=== PATIENT | male | born 1985 | race Two or more races ===

== ENCOUNTER 2025-10-12 16:56 | Emergency (ER) | payer MEDICAID, SELFPAY ==
[2025-10-12 18:30] VITALS: BP 137/79; PULSE 69; RESP 18; TEMP 36.9; O2SAT 98; BMI 25.4
--- NOTE | 2025-10-12 18:46 | PD.EDWOUND ---
ED Wound/Laceration-RME/HPI General Chief Complaint: Wound/Laceration Stated Complaint: Laceration to left side of head Time Seen by Provider: 10/12/25 18:43 Arrival date/time: 10/12/25 16:56 40M with no significant PMH presents to ED with L scalp lac after a ladder fell on his head. Patient denies LOC, AMS, seizures, N/V, and vision changes. Patient is UTD on tetanus. Limitations: no limitations Related Data Allergies Allergy/AdvReac Type Severity Reaction Status Date / Time No Known Drug Allergies Allergy Verified 10/12/25 17:01 Review of Systems Review of Systems Systems Reviewed: All systems reviewed, normal except as documented Integumentary/Breasts Skin/Breast: Reports as per HPI and Reports skin pain Past Medical History Social History SMOKING STATUS: Never smoker ED Exam General Limitations: Present no limitations General appearance: Present alert and in no apparent distress Expanded Head Exam Head exam physical: Present laceration (2 cm L scalp) Neck Neck exam: Present normal inspection, full ROM and trachea midline Chest Chest inspection: Present normal inspection and symmetric chest wall rise Neurological Exam Neurological exam: Present alert and oriented X3 Psychiatric Psychiatric exam: Present normal affect and normal mood Skin Skin exam: Present warm, dry, intact and normal color Course Quality Measures none Orders Category Date Time Status Stapler to Beside ONCE Care 10/12/25 18:45 Active Wound Care NOW Care 10/12/25 18:45 Active Naproxen [Naprosyn] Med 10/12/25 18:45 Discontinued 500 mg PO X1 ONE Vital Signs Vital signs: Vital Signs Temperature 98.4 F 10/12/25 18:30 Pulse Rate 69 10/12/25 18:30 Respiratory Rate 18 10/12/25 18:30 Blood Pressure 137/79 H 10/12/25 18:30 Pulse Oximetry (%) 98 10/12/25 18:30 Oxygen Delivery Method Room Air 10/12/25 18:30 O2 at 98% on RA and WNLs Wound / Laceration MDM Narrative MDM Narrative:: 40M with no significant PMH presents to ED with L scalp lac after a ladder fell on his head. Patient denies LOC, AMS, seizures, N/V, and vision changes. Patient is UTD on tetanus. Physical exam reveals 2 cm lac on L scalp. No other gross head trauma. Speech and gait normal. Patient is afebrile, calm, and alert. Wound cleaned and closed with 4 dejon. Given school guidance counselor to have them removed in about 10 days. Patient data External records reviewed:: None Clinical information provided by:: patient Social determinants that could affect healthcare access:: none Patient has the following chronic illnesses:: none How is presenting disease/condition affected by chronic disease/condition?: no chronic disease Evaluation data The following diagnostics were reviewed and interpreted by me:: other (specify) (none) Lab and/or radiology exams considered but not ordered:: not ordered Interpretation Summary: n/a Medications / Prescriptions Medications or Prescriptions considered but not ordered:: ordered Medication administrations:: Medication Administration History Discontinued Medications Naproxen (Naproxen 250 Mg Tablet) 500 mg PO X1 ONE Stop: 10/12/25 18:46 above Consultations Consultation(s) initiated? (list below): No Diagnosis Wound Differential Diagnosis: laceration, abrasion, avulsion of skin and other (CHI) Most likely diagnosis given after review of the tests above:: CHI and laceration Admission Indicated Admission indicated?: not indicated Admission Request Was there a request for admission?: No Disposition Plan Disposition Plan: Discharge Discharge Attestation Discharge Attestation: The patient and all family members were given an opportunity to ask questions and understood the discharge instructions. Discharge instructions specifically effects, indications for sooner follow up or return to the emergency department, and the expected course of current diagnosis. Patient condition: Stable Discharge Plan Plan Patient Disposition: HOME (Self Care) Discharge Disposition comment: Stable Problem List Clinical Impression: Laceration, CHI (closed head injury) Patient/Caregiver Discharge Instructions Education Materials: ED Head Injury with Sleep ..., ED Laceration Scalp Sutures or ... Additional Instructions: Please follow-up with PCP within 24-48 hours and return immediately if symptoms worsen. Have dejon removed in about 10 days. For the next 24-48 hours, watch for unexplained nausea/vomiting, confusion, lethargy, not acting like yourelf, and seizures. Print Language: Occitan Stand Alone Forms: Patient Portal Info Letter ARASELI/TONYA Supervising Physician ARASELI/TONYA Supervising Physician: Dr. Dickens
[2025-10-12] MEDS: NAPROXEN 250 MG TABLET 500 MG PO (18:52)
== END 2025-10-12 18:53 | disposition home or self-care (01) ==
LOC: SERX 19:15
PROVIDERS: Emergency Provider Emergency Medicine
DX: S01.01XA Laceration without foreign body of scalp, initial encounter (principal); W20.8XXA Other cause of strike by thrown, projected or falling object, initial encounter
CPT/HCPCS: 12001; 99281; A9270

== ENCOUNTER 2025-10-26 10:40 | Emergency (ER) | payer MEDICAID, SELFPAY ==
[2025-10-26 11:03] VITALS: BP 134/74; PULSE 55; RESP 16; TEMP 36.9; O2SAT 98; BMI 26.9
--- NOTE | 2025-10-26 11:13 | PD.EDADULT ---
ED General RME/HPI General Chief complaint: General Adult/Misc Complain Stated complaint: STAPLE REMOVAL ON SCALP Time Seen by Provider: 10/26/25 10:43 Arrival date/time: 10/26/25 10:40 40-year-old female presents to the emergency department today requesting staple removal. Limitations: no limitations Related Data Allergies Allergy/AdvReac Type Severity Reaction Status Date / Time No Known Drug Allergies Allergy Verified 10/26/25 10:44 Review of Systems Review of Systems Systems Reviewed: All systems reviewed, normal except as documented Constitutional Constitutional: Reports system reviewed and no additional complaints, except as documented, Denies fever(s) and Denies headache(s) Eyes Eyes: Reports system reviewed and no additional complaints, except as documented and Denies blurry vision ENT Ears, Nose, Mouth, and Throat: Reports system reviewed and no additional complaints, except as documented, Denies headache(s), Denies nasal congestion and Denies nasal discharge Cardiovascular Cardiovascular: Reports system reviewed and no additional complaints, except as documented, Denies chest pain and Denies dyspnea Respiratory Respiratory: Reports system reviewed and no additional complaints, except as documented, Denies chest congestion, Denies cough and Denies dyspnea Gastrointestinal Gastrointestinal: Reports system reviewed and no additional complaints, except as documented and Denies abdominal pain Integumentary/Breasts Skin/Breast: Reports system reviewed and no additional complaints, except as documented, Denies rash and Reports wounds (Laceration scalp) Neurologic Neurologic: Reports system reviewed and no additional complaints, except as documented, Reports as per HPI and Denies headache(s) Past Medical History Social History SMOKING STATUS: Never smoker ED Exam General Limitations: Present no limitations General appearance: Present alert and in no apparent distress Expanded Head Exam Head image:  1. 4 staple scalp no evidence of infection Eye Eye exam: Present normal appearance, PERRL and EOMI ENT ENT exam: Present normal exam, normal oropharynx and mucous membranes moist Neck Neck exam: Present normal inspection, full ROM and trachea midline Chest Chest inspection: Present normal inspection and symmetric chest wall rise Respiratory Respiratory exam: Present normal lung sounds bilaterally Cardiovascular Cardiovascular exam: Present regular rate, normal rhythm and normal heart sounds Abdominal Exam Abdominal exam: Present soft and normal bowel sounds Extremities Exam Extremities exam: Present normal inspection and full ROM Back Exam Back exam: Present normal inspection and full ROM Neurological Exam Neurological exam: Present alert, oriented X3 and CN II-XII intact Psychiatric Psychiatric exam: Present normal affect and normal mood Skin Skin exam: Present warm, dry, intact and normal color Course Quality Measures none Vital Signs Vital signs: Vital Signs Temperature 98.4 F 10/26/25 11:03 Pulse Rate 55 L 10/26/25 11:03 Respiratory Rate 16 10/26/25 11:03 Blood Pressure 134/74 H 10/26/25 11:03 Pulse Oximetry (%) 98 10/26/25 11:03 Oxygen Delivery Method Room Air 10/26/25 11:03 O2 saturation 98% on room air within normal limits Discharge Plan Plan Patient Disposition: HOME (Self Care) Discharge Disposition comment: Stable Problem List Clinical Impression: Encounter for removal of dejon Patient/Caregiver Discharge Instructions Education Materials: ED Stitches/Staple Removal No ... Print Language: Citizen Of [place] Stand Alone Forms: Nora Award Info., Patient Portal Info Letter PA/INTEGRATED [employer] FABRICATOR Supervising Physician PA/[employer] FABRICATOR Supervising Physician: dr [email or web address] MDM Narrative MDM hospital course (for use when minimal MDM required): 40-year-old female presents to the emergency department today requesting staple removal. On exam patient well-appearing does not appear look toxic no acute distress Staple removed in its entirety Patient discharged home in no distress to follow-up with primary care doctor in the next 24 to 48 hours and for any worsening symptoms to return to the ER immediately Clinical Information Provided by: patient Medical Records reviewed [facility] Meds/Rx considered, not ordered None Labs/Rad/Tests considered, not ordered None Chronic Illness/Social Conditions which may negatively complicate care or outcome(s)-explain: None or not applicable EKG EKG not done Labs Labs: none Imaging Imaging interpretation: none Medication Administration(s) none Diagnosis Differential Diagnosis ED Complaint MDM: Step removal, laceration, abrasion
== END 2025-10-26 11:33 | disposition home or self-care (01) ==
LOC: SERX 11:43
PROVIDERS: Emergency Provider Nurse Practitioner Primary Care
DX: S01.01XD Laceration without foreign body of scalp, subsequent encounter (principal); X58.XXXD Exposure to other specified factors, subsequent encounter
CPT/HCPCS: 99281